=== PATIENT | male | born 1995 | race Caucasian/White ===

== ENCOUNTER 2018-04-09 05:18 | Emergency (ER) | payer BC ==
[2018-04-09] MEDS ORDERED: KETOROLAC 15 MG/1 ML SDV IVP ONE (05:37)
[2018-04-09] MEDS ORDERED: NS 1,000 ML IV ONE (05:37)
[2018-04-09] MEDS ORDERED: ONDANSETRON 4 MG/2 ML VIAL IVP ONE (05:37)
--- NOTE | 2018-04-09 05:43 | EDPHY ---
H & P Stated Complaint: RODRIGUEZ and emesis x3 Time Seen by Provider: 04/09/18 05:23 HPI/ROS: HPI The patient presents with headache and vomiting for 1 day. Yesterday he noticed at about 10:00 p.m. That he was having difficulty speaking. He said he could not pronounce words correctly such as "[place]". He told his brother he was feeling this way. He did not have any slurring of his speech. He then had some splotches of his vision which lasted for a few minutes. At about 11:00 p.m. He developed a headache. This started slowly and has become gradually worse. It is left-sided, temporal, sharp in nature, worse when he moves his head around or coughs. He has vomited about 6 times since the headache began. He has been unable to sleep tonight much because of headache. About 6-8 months ago he had an episode of confusion associated with left hand tingling which lasted for a few minutes. He told his father about this at the time. He did not have a headache then. He has not had any fever, weakness of his arms or legs, neck pain, photophobia. REVIEW OF SYSTEMS 10 systems were reviewed and negative with the exception of the elements mentioned in the history of present illness. 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 FHx: Father with headaches as a child which were triggered by certain foods PHYSICAL General Appearance: Alert, no distress Head: There is no temporal tenderness, no sinus tenderness of the maxillary or frontal sinuses Eyes: Pupils equal and round no pallor or injection ENT, Mouth: Mucous membranes moist Respiratory: There are no retractions, lungs are clear to auscultation Cardiovascular: Regular rate and rhythm Gastrointestinal: Abdomen is soft and non-tender, no masses, bowel sounds normal Neurological: A&O x3, cranial nerves 2-12 intact, speech is fluid, strength is 5/5 in upper and lower extremities Skin: Warm and dry, no rashes Musculoskeletal: Neck is supple non tender Extremities: symmetrical, full range of motion Psychiatric: Patient is oriented X 3, there is no agitation Source: Patient Exam Limitations: No limitations - Personal History Current Tetanus/Diphtheria Vaccine: No Current Tetanus Diphtheria and Acellular Pertussis (TDAP): No - Medical/Surgical History Hx Asthma: No Hx Chronic Respiratory Disease: No Hx Diabetes: No Hx Cardiac Disease: No Hx Renal Disease: No Hx Cirrhosis: No Hx Alcoholism: No Hx HIV/AIDS: No Hx Splenectomy or Spleen Trauma: No Other PMH: denies - Social History Smoking Status: Never smoked Constitutional: Initial Vital Signs Temperature (C) 37.3 C 04/09/18 05:18 Heart Rate 100 04/09/18 05:18 Respiratory Rate 16 04/09/18 05:18 Blood Pressure 139/75 H 04/09/18 05:18 O2 Sat (%) 98 04/09/18 05:18 O2 Delivery Mode Room Air Allergies/Adverse Reactions: No Known Allergies Allergy (Unverified 04/09/18 05:22) Home Medications: Medication Instructions Recorded NK [No Known Home Meds] 04/09/18 Medical Decision Making - Diagnostics Imaging Results: CT brain without contrast is unremarkable. Imaging: Discussed imaging studies w/ will call clerk Radiologist Differential Diagnosis: 23-year-old healthy male presents with headache and vomiting for the last several hours. Preceding this the patient had some word-finding problems as well as changes in his vision which he describes as splotches more prominently in his right visual field. These neurologic symptoms have since resolved. He has a normal neurologic exam here. He is complaining of a headache and nausea which has prevented him from sleeping tonight. Differential diagnosis includes atypical migraine, TIA, less likely brain mass. In the emergency department, patient was given IV fluids, Zofran, Toradol. CT head was normal. Patient received medication and felt better. Suspect atypical migraine. Discussed with parents referral to Neurology if symptoms persist. They are happy with this plan. - Data Points Medications Given: Discontinued Medications Sodium Chloride (Ns) 1,000 mls @ 0 mls/hr IV EDNOW ONE; Wide Open PRN Reason: Protocol Stop: 04/09/18 05:38 Last Admin: 04/09/18 05:46 Dose: 1,000 mls Ketorolac Tromethamine (Toradol) 15 mg IVP EDNOW ONE Stop: 04/09/18 05:38 Last Admin: 04/09/18 05:44 Dose: 15 mg Ondansetron HCl (Zofran) 4 mg IVP EDNOW ONE Stop: 04/09/18 05:38 Last Admin: 04/09/18 05:44 Dose: 4 mg Departure - Departure Disposition: Home, Routine, Self-Care Clinical Impression: Headache, Vomiting Condition: Good Instructions: Acute Headache (ED) Additional Instructions: You can take ibuprofen 400 mg with acetaminophen 650 mg every 6 hr as needed for your headache. An alternative would be to take Excedrin migraine which is available [id number]. If you have ongoing headaches or any difficulty with your speech, I do recommend you follow up with your primary care doctor. You should return to the ER if your worse in any way. Referrals: Patient,NotPresent [Unknown] - As per Instructions
[2018-04-09 06:31] VITALS: BP 126/76
== END 2018-04-09 06:31 | disposition home or self-care (01) ==
DX: R51 Headache (principal); R11.10 Vomiting, unspecified
CPT/HCPCS: 96374; J1885; J2405